=== PATIENT | male | born 1935 | race Caucasian/White ===

== ENCOUNTER 2023-08-20 18:12 | Inpatient (IN) | payer OTHER ==
[~2023-08-20] VITALS: Ht 180.3 cm; Wt 106.0 kg
[~2023-08-20 18:12] MED LIST: ACET500 PO; ALBU2.5V5 INH; BISA5EC PO; CALCIUM 500 MG1 EAC2 PO; CALCIUM CARBON500 M1 PO; CODEINE-GUAIFE120 M1 PO; DONE5 PO; DULO30 PO; ELIQUIS2.5 MG PO; HYDCOR10 TOP; Lopressor 25 mg25 MG PO; MIRALAX17 GM PO; NEURONTIN600 MG PO; OMEP20ER PO; Oxycodone HCl20 M1 PO; PRED20 PO; PRED5 PO; QUET25 PO; SENNA LAXATIVE8.6 MG PO; SIME80CH PO
[2023-08-20] MEDS ORDERED: FentaNYL Citrate 50 MCG/ML 2 ML Injection IV ONE (19:05)
[2023-08-20 19:10] LABS: BASOPHILS ABSOLUTE AUTO 0.03 K/mm3 (0.00-0.23); BASOPHILS PERCENT AUTO 0 % (0-2); EOSINOPHILS ABSOLUTE AUTO 0.11 K/mm3 (0.00-0.68); EOSINOPHILS PERCENT AUTO 1 % (0-6); Hematocrit 43.4 % (37.0-53.0); Hemoglobin 14.5 g/dL (13.5-17.5); IMMATURE GRAN ABSOLUTE AUTO 0.02 K/mm3 (0.00-0.10); IMMATURE GRAN PERCENT AUTO 0 % (0-1); LYMPHOCYTES ABSOLUTE AUTO 0.94 K/mm3 (0.84-5.20); LYMPHOCYTES PERCENT AUTO 10 % (21-46); MONOCYTES ABSOLUTE AUTO 0.52 K/mm3 (0.16-1.47); MONOCYTES PERCENT AUTO 6 % (4-13); Mean Corpuscular HGB 31.9 pg (26.0-34.0); Mean Corpuscular HGB Conc 33.4 g/dL (31.5-36.5); Mean Corpuscular Volume 96 fL (80-100); Mean Platelet Volume 10.5 fL (9.1-12.4); NEUTROPHILS ABSOLUTE AUTO 7.61 K/mm3 (1.96-9.15); NEUTROPHILS PERCENT AUTO 83 % (41-73); Platelet Count 144 K/mm3 (150-400); RDW Coefficient Variation 12.5 % (11.7-14.2); RDW Standard Deviation 43.8 fL (35.1-46.3); Red Blood Cell Count 4.54 M/mm3 (4.30-5.90); White Blood Cell Count 9.23 K/mm3 (4.00-11.30)
[2023-08-20 19:23] LABS: Albumin, Blood 3.6 g/dL (3.4-5.0); Albumin/Globulin Ratio 0.9 (0.8-1.8); Bilirubin, Total 0.6 mg/dL (0.1-1.0); Bun/Creatinine Ratio 20.8 (12.0-20.0); Calcium, Blood 9.3 mg/dL (8.5-10.1); Creatinine, Blood 0.96 mg/dL (0.60-1.20); Globulin, Blood 4.2 g/dL (2.2-4.0); Potassium, Blood 4.5 mmol/L (3.5-5.5); Total Protein, Blood 7.8 g/dL (6.4-8.2)
[2023-08-20 19:30] LABS: Source, Urine Clean Catch
[2023-08-20 19:34] LABS: Appearance, Urine Clear (Clear); Bilirubin, Urine Neg (Neg); Blood, Urine Neg (Neg); Color, Urine Yellow (P-Yellow); Glucose Qualitative, Urine Neg (Neg); Ketones, Urine Neg (Neg); Leukocyte Esterase, Urine Neg (Neg); Nitrite, Urine Neg (Neg); Protein, Urine 2+ (Neg); Urobilinogen, Urine NORM (Normal)
[2023-08-20 19:43] LABS: Bacteria Rare /hpf; Red Blood Cells, Urine Not Seen /hpf (0-2); Squamous Epithelial Cells Not Seen /hpf (Few); White Blood Cells, Urine 0-2 /hpf (0-5)
[2023-08-20] MEDS ORDERED: NS 1,000 ML IV SCH ×2 (20:10→23:00)
[2023-08-20] MEDS ORDERED: ATOR20 PO (20:58)
[2023-08-20] MEDS ORDERED: FLU VACC QS2023-24(6MOS UP)/PF 60 MCG/0.5 ML SYRINGE IM ONE (22:10)
[2023-08-20] MEDS ORDERED: Ondansetron HCl 2 MG / ML 2ML Vial IV PRN (22:40)
[2023-08-20] MEDS ORDERED: FentaNYL Citrate 50 MCG/ML 2 ML Injection IV PRN (22:40)
[2023-08-20 22:47] LABS: Magnesium, Blood 2.2 mg/dL (1.6-2.4); Phosphorus, Blood 3.9 mg/dL (2.5-4.9)
[2023-08-20] MEDS ORDERED: OLANZapine 10 MG Vial IM PRN ×2 (22:50→22:55)
[2023-08-20] MEDS ORDERED: Metoprolol Tartrate 1 MG/ML 5 ML VIAL IV PRN ×2 (22:50→22:55)
[2023-08-20] MEDS ORDERED: Enoxaparin 40 MG/0.4 ML SYR SC SCH (23:00)
[2023-08-20] MEDS ORDERED: OLANZapine 10 MG Vial IM SCH (23:00)
[2023-08-20 23:26] VITALS: BP 141/95
--- NOTE | 2023-08-20 23:34 | NUR ---
ADMIT NOTE HANDOFF RECEIVED FROM CLINICAL FELLOWSHERYL MONK. PT ARRIVED TO FLOOR VIA GURNEY. PERSONAL POSSESSIONS WITH PT. PT ORIENTED TO UNIT. CALL BUTTON WITHIN REACH. IV FLUIDS INFUSING ORDERED.
[2023-08-21] MEDS ORDERED: NS 1,000 ML IV SCH
--- NOTE | 2023-08-21 04:48 | NUR ---
SHIFT SUMMARY ADMITTED FROM THE ER THIS SHIFT FOR SBO. DNR CODE. NS INFUSING ORDERED. BM THIS SHIFT. PT IS NPO. HE IS A 1 ASSIST TO BSC. HE DOES HAVE DEMENTIA. HE LIVES AT [facility]. HE IS ALERT TO SELF. HE KNOWS HE IS IN A HOSPITAL, BUT NOT THE TOWN OR NAME OF THE HOSPITAL. SURGICAL CONSULT HAS BEEN CALLED TO ANSWERING SERVICE. HE STATES FREQUENTLY THAT HIS FEET HURT BUT HE REFUSES PAIN MEDICATION
[2023-08-21 06:09] LABS: BASOPHILS ABSOLUTE AUTO 0.03 K/mm3 (0.00-0.23); BASOPHILS PERCENT AUTO 0 % (0-2); EOSINOPHILS ABSOLUTE AUTO 0.12 K/mm3 (0.00-0.68); EOSINOPHILS PERCENT AUTO 2 % (0-6); Hemoglobin 12.3 g/dL (13.5-17.5); IMMATURE GRAN ABSOLUTE AUTO 0.03 K/mm3 (0.00-0.10); IMMATURE GRAN PERCENT AUTO 0 % (0-1); LYMPHOCYTES ABSOLUTE AUTO 1.27 K/mm3 (0.84-5.20); LYMPHOCYTES PERCENT AUTO 16 % (21-46); MONOCYTES PERCENT AUTO 8 % (4-13); Mean Corpuscular HGB 31.9 pg (26.0-34.0); Mean Corpuscular HGB Conc 32.4 g/dL (31.5-36.5); Mean Corpuscular Volume 99 fL (80-100); Mean Platelet Volume 10.6 fL (9.1-12.4); NEUTROPHILS ABSOLUTE AUTO 5.94 K/mm3 (1.96-9.15); NEUTROPHILS PERCENT AUTO 74 % (41-73); Platelet Count 124 K/mm3 (150-400); RDW Coefficient Variation 12.7 % (11.7-14.2); RDW Standard Deviation 45.5 fL (35.1-46.3); Red Blood Cell Count 3.85 M/mm3 (4.30-5.90); White Blood Cell Count 7.99 K/mm3 (4.00-11.30)
[2023-08-21 06:46] LABS: Bun/Creatinine Ratio 19.1 (12.0-20.0); Calcium, Blood 8.1 mg/dL (8.5-10.1); Creatinine, Blood 0.84 mg/dL (0.60-1.20); Potassium, Blood 4.4 mmol/L (3.5-5.5)
[2023-08-21 07:33] VITALS: BP 122/78
--- NOTE | 2023-08-21 14:28 | NUR ---
SHIFT SUMMARY PT AWAKE AT START OF SHIFT, UP TO BSC TO VOID. PT ADMITTED FOR SBO; NOC SHIFT REPORTED BM'S X2. PT UP TO BTHRM SEVERAL TIMES THIS SHIFT; 2 BMS TO PRESENT ON DAY SHIFT. DR RODRÍGUEZ IN TO SEE PT THIS AM. PT NPO FOR SURGICAL CONSULT. DR CARD PLACED ORDERS FOR NGT, BUT PT REFUSING. DR CARD NOTIFIED OF PT'S REFUSAL. DR CARD STATED THAT HE WOULD BE UNABLE TO ASSIST PT AT THIS TIME, SINCE HE IS REFUSING. DR RODRÍGUEZ UPDATED ON PT'S REFUSAL OF NGT AND DISCUSSION WITH DR CARD. PER DR RODRÍGUEZ, PT TO BE GIVEN SIPS OF WATER TODAY; SO FAR, PT TOLERATING WELL. PT REPORTED STOMACH PAIN IMPROVED AFTER BM'S. PT DOES CONTINUE TO C/O PAIN TO FEET; MEDICATED EARLIER PER EMAR WITH GOOD EFFECT FOR A WHILE. PT'S DAUGHTER AND POA, CALLED TO [facility] ON PT AND REPORTING HX OF SBO'S D/T ISSUES WITH LARGE INTESTINE BECOMING "" AND PARIAL REMOVAL. NURSE FROM .A. ALSO CALLED TO [facility] ON PT; UPDATE GIVEN. PT UP TO BTHRM USING FWW AND SBA. CALLS APPROPRIATELY WHEN FINISHED. BED ALARM ON FOR SAFETY. CALL LT IN REACH.
[2023-08-21 15:16] VITALS: BP 135/79
[2023-08-21 20:09] VITALS: BP 142/91
[2023-08-22] MEDS ORDERED: Ketorolac Tromethamine 15mg Vial IV PRN (01:00)
[2023-08-22] MEDS ORDERED: Phenyleph/Mineral Oil/Petrolat 1 APPLIC/57 GM Tube PR PRN (01:00)
--- NOTE | 2023-08-22 01:32 | NUR ---
PT REPORTS POOR PAIN CONTROL. DISCUSSED HOME MEDICATIONS WITH PT. PT STATES THAT HE CAN TAKE NSAIDS WITHOUT DIFFICULTY. CALLED HOSPITALIST AND OBTAINED ORDER FOR TORADOL. RECEIVED CALL FROM PHARMACY STATING PT HAS ALLERGY LISTED TO SALONPAS WHICH CONTAINS AN ANTI-INFLAMMATORY. DISCUSSED WITH PT, PT DOES NOT RECALL USING SALONPAS. SHOWED PT PICTURE OF MEDICATION, PT STATES HE TOOK A PILL ONE TIME THAT CAUSED A RASH, BUT DOES NOT RECALL AN ALLERGIC REACTION TO ANY OTHER MEDICATIONS. PT STATES HE DOES NOT KNOW WHAT THE PILL WAS THAT HE HAD AN ALLERGIC REACTION TO.
[2023-08-22 05:32] VITALS: BP 150/96
--- NOTE | 2023-08-22 05:52 | NUR ---
SHIFT SUMMARY: "EVA" IS A&OX2-3. VSS, NO ACUTE EVENTS OVERNIGHT. PT BECOMES SOB ON EXERTION, INCLUDING REPOSITIONING HIMSELF IN BED. O2 VIA NC PROVIDED, PT WORE FOR A SHORT TIME X2 THIS SHIFT. HE WAS UP TO THE BATHROOM FREQUENTLY, COMPLAINED OF BACK, ABDOMINAL, HEMORRHOIDAL, AND FOOT PAIN. PLEASE SEE NEW ORDERS. PT HAS HAD SEVERAL SMALL, LOOSE BM'S AND HAS PASSED COPIOUS AMOUNTS OF GAS. PT TAKES GABAPENTIN AND ORAL PAIN MEDICATION AT BASELINE, REPORTS SYMPTOMS OF FOOT NEUROPATHY SIGNIFICANTLY INCREASED. HE HAS TOLERATED SIPS OF WATER THIS SHIFT. IV TO LEFT AC PATENT. HE IS LYING IN BED WITH THE CALL LIGHT IN REACH. WILL GIVE REPORT TO DAY SHIFT RN.
[2023-08-22 06:13] LABS: BASOPHILS ABSOLUTE AUTO 0.02 K/mm3 (0.00-0.23); BASOPHILS PERCENT AUTO 0 % (0-2); EOSINOPHILS ABSOLUTE AUTO 0.14 K/mm3 (0.00-0.68); EOSINOPHILS PERCENT AUTO 2 % (0-6); Hemoglobin 12.1 g/dL (13.5-17.5); IMMATURE GRAN ABSOLUTE AUTO 0.02 K/mm3 (0.00-0.10); IMMATURE GRAN PERCENT AUTO 0 % (0-1); LYMPHOCYTES ABSOLUTE AUTO 1.11 K/mm3 (0.84-5.20); LYMPHOCYTES PERCENT AUTO 15 % (21-46); MONOCYTES ABSOLUTE AUTO 0.54 K/mm3 (0.16-1.47); MONOCYTES PERCENT AUTO 7 % (4-13); Mean Corpuscular HGB 31.8 pg (26.0-34.0); Mean Corpuscular HGB Conc 32.7 g/dL (31.5-36.5); Mean Corpuscular Volume 97 fL (80-100); Mean Platelet Volume 10.7 fL (9.1-12.4); NEUTROPHILS ABSOLUTE AUTO 5.53 K/mm3 (1.96-9.15); NEUTROPHILS PERCENT AUTO 75 % (41-73); Platelet Count 134 K/mm3 (150-400); RDW Coefficient Variation 12.8 % (11.7-14.2); RDW Standard Deviation 45.9 fL (35.1-46.3); White Blood Cell Count 7.36 K/mm3 (4.00-11.30)
[2023-08-22 06:22] LABS: Bun/Creatinine Ratio 14.6 (12.0-20.0); Calcium, Blood 8.5 mg/dL (8.5-10.1); Creatinine, Blood 0.96 mg/dL (0.60-1.20); Potassium, Blood 3.7 mmol/L (3.5-5.5)
[2023-08-22 07:54] VITALS: BP 148/89
[2023-08-22] MEDS ORDERED: Bisacodyl 5 MG TabEC PO PRN (10:15)
[2023-08-22] MEDS ORDERED: QUEtiapine Fumarate 25 MG Tab PO PRN (10:50)
--- NOTE | 2023-08-22 11:52 | NUR ---
AT 1030 PT BECAME INCREASINGLY AGGITATED STATING HE WOULD RATHER BE IN HIS ROOM IF "NOTHING IS BEING DONE." PT REPEATEDLY COMPLAINING OF BILATERAL FOOT PAIN. DR RODRÍGUEZ NOTIFIED THAT PT TAKES GABAPENTIN AT HOME AND ABOUT AGGITATION. NEW ORDERS PLACED. PT MEDICATED FOR AGGITATION PER EMAR AND IS RESTING IN BED AT THIS TIME. CONTINUES TO COMPLAIN OF PAIN BUT WILL GIVE SCHEDULED GABAPENTIN SOON EMAR PERMITS. PT TOLERATING CLEAR LIQUID DIET AND IS HAVING FREQUENT UNFORMED BROWN STOOL. BED IN LOW POSITION, CALL LIGHT WITHIN REACH.
[2023-08-22] MEDS ORDERED: Albuterol 2.5 MG/3 ML VIAL INH PRN (12:30)
[2023-08-22] MEDS ORDERED: Gabapentin 300 MG Cap PO SCH (14:00)
--- NOTE | 2023-08-22 17:04 | NUR ---
SHIFT SUMMARY PT AXO X1-2 EXTREMELY FORGETFUL. PT STARTED CLEAR LIQUIDS AND WAS TOLERATING WELL WITHOUT SIGNS OF ASPIRATION UNTIL AT 1205 THIS NURSE OBSERVED PT SOB AT REST. PT WAS 97 ON RA. SOME EXPIRATORY WHEEZE NOTED. DR RODRÍGUEZ NOTIFIED AT 1223, PT MADE NPO, CHEST X-RAY AND RT ORDERED. PT COMPLAINED OF PAIN, MEDICATED PER EMAR WITHOUT RELIEF UNTIL GABAPENTIN GIVEN. PT SLEEPING COMFORTABLY AT THIS TIME. BED IN LOW POSITION, CALL LIGHT WITHIN REACH. PT MEDICATED FOR AGGITATION AT 1106 WITH GOOD EFFECT. SEE PRIOR NOTE. PT HAVING LOOSE STOOL BM'S FREQUENTLY WHILE AWAKE.
[2023-08-22 20:12] VITALS: BP 150/85
--- NOTE | 2023-08-22 20:48 | NUR ---
DISCUSSED BOWEL OBSTRUCTION WITH PT. EDUCATED ON PURPOSE AND BENEFIT OF NG TUBE. PT REFUSES NG TUBE STATING THAT HE FEELS HE CANNOT BREATHE WHEN SOMETHING IS IN HIS NOSE.
[2023-08-22] MEDS ORDERED: Sennosides 8.6 MG Tab PO SCH (21:00)
[2023-08-22] MEDS ORDERED: Metoprolol Tartrate 25 MG Tab PO SCH (21:00)
[2023-08-22] MEDS ORDERED: QUEtiapine Fumarate 25 MG Tab PO SCH (21:00)
[2023-08-22] MEDS ORDERED: Atorvastatin 10 MG Tab PO SCH (21:00)
[2023-08-22] MEDS ORDERED: Calcium 500 MG/Vit D 200 Units Tab PO SCH (21:00)
[2023-08-22] MEDS ORDERED: Polyethylene Glycol 3350 17 gm PO SCH (21:00)
--- NOTE | 2023-08-22 21:50 | NUR ---
PT BECAME AGITATED AND STATED THAT HE WISHED TO GO HOME. STAFF ATTEMPTED TO REDIRECT PT. PT STATED THAT NOTHING IS BEING DONE FOR HIM AND THEREFORE WISHED TO GO HOME. EDUCATED PT ON SMALL BOWEL OBSTRUCTION AND DISCUSSED NG TUBE. PT AGAIN REFUSED NG TUBE PLACEMENT. PT CALLED HIS DAUGHTER, ALVIN, WHO IS HIS POA AND DISCUSSED HIS FEELINGS WITH HER. 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 SHE VOICED CONCERN THAT PT IS AT RISK FOR DEVELOPING THE SAME PROBLEM. SHE ALSO STATED THAT PT HAS A HISTORY OF DEMENTIA WITH BEHAVIORAL DISTURBANCE WHICH IS WELL CONTROLLED LONG PT TAKES HIS MEDICATIONS. CALLED THE ON-CALL HOSPITALIST WHO GAVE ORDER TO GIVE PT HIS GABAPENTIN AND SEROQUEL PO WITH A SIP OF WATER.
[2023-08-23] MEDS ORDERED: Ketorolac Tromethamine 15mg Vial IV PRN (02:10)
[2023-08-23 03:49] VITALS: BP 141/109
--- NOTE | 2023-08-23 03:57 | NUR ---
SHIFT SUMMARY: "EVA" IS A&OX2. VSS, NO ACUTE EVENTS OVERNIGHT. IV TO LEFT AC PATENT. PT HAS VOICED FRUSTRATION OVERNIGHT STATING THAT HE WISHES TO LEAVE THIS FACILITY AND GO HOME, THAT HE NEEDS TO GET BACK TO WORK FALLING TIMBER. PT REQUESTING PRUNE JUICE, EDUCATED ON PROTOCOL FOR TREATING SMALL BOWEL OBSTRUCTION. PT STATED "IF NOTHING IS GOING IN HOW CAN ANYTHING COME OUT?". PT CONTINUES TO REFUSE NG TUBE. PT DID HAVE ONE BOWEL MOVEMENT WITH VERY SMALL, SOFT BLOBS OF EXCREMENT AND HAS CONTINUED PASSING GAS. PT DID TOLERATE THE SEROQUEL AND GABAPENTIN WITH SMALL SIPS OF WATER WITHOUT DIFFICULTY. PT REQUESTING TO EAT AND DRINK. PULL-UP IN PLACE, PT IS CONTINENT OF BLADDER AND BOWEL. PT HAS NOT USED THE CALL LIGHT THIS SHIFT, BED ALARM IN PLACE. HE IS A STANDBY ASSIST WITH THE FWW. PT IS SITTING ON THE SIDE OF THE BED WITH THE CALL LIGHT IN REACH. WILL GIVE REPORT TO DAY SHIFT RN.
--- NOTE | 2023-08-23 05:35 | NUR ---
PT REFUSED LAB DRAW STATING THAT HE WISHES TO BE DISCHARGED. EDUCATED PT ON IMPORTANCE OF FOLLOW-UP BLOOD WORK, PT CONTINUES TO REFUSE LAB DRAW.
[2023-08-23] MEDS ORDERED: Omeprazole 20 MG CapCR PO SCH (06:00)
[2023-08-23] MEDS ORDERED: DULoxetine HCL 30 MG Cap DR PO SCH (09:00)
[2023-08-23 15:12] VITALS: BP 123/87
--- NOTE | 2023-08-23 19:40 | NUR ---
SHIFT SUMMARY PATIENT WITH PAIN TODAY, MEDICATED PER EMAR WITH RELIEF. HE CONTINUES TO BE AGITTATED THROUGHTOUT THE DAY OFF AND ON. TOLERATING FULL LIQUID DIET. 1 FORMED BM THIS AM AND 3 ADDITIONAL WITH SMALL PIECES OF BM THROUGHOUT SHIFT. 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 HE IS ORIENTED TO SELF AND KNOWS WHO HIS DAUGHTERS ARE. HE IS STEADY ON HIS FEET TODAY BUT FORGETFUL OF LIMITATIONS. BED IN LOW POSITION, CALL LIGHT IN REACH. PATIENT ABLE TO MAKE NEEDS KNOWN.
[2023-08-23 19:50] VITALS: BP 132/92
[2023-08-23] MEDS ORDERED: QUEtiapine Fumarate 50 MG TAB PO SCH (21:00)
[2023-08-23] MEDS ORDERED: Melatonin 3 MG Tab PO SCH (21:00)
--- NOTE | 2023-08-24 04:20 | NUR ---
SHIFT SUMMARY LOYD VALE WAS ALERT AND ORIENTED TO SELF ONLY AT START OF SHIFT. PT COMPLAINS OF FOOT PAIN, MEDICATED PER EMAR NO ACUTE EVENTS TONIGHT, NO NOTED CHANGES TO PT CONDITION. PT MAKING FREQUENT TRIPS TO THE BATHROOM HAVING SMALL SOFT BM'S. PT SATS REMAIN IN THE 90'S ON RA, HOWEVER THE PT DOES SEEM TO HAVE SOME SWATI WHILE SLEEPING. PT RESTING IN BED AT A LOW POSITION WITH CALL LIGHT IN REACH.
[2023-08-24 06:16] VITALS: BP 123/73
[2023-08-24 07:28] VITALS: BP 121/90
[2023-08-24 12:22] LABS: SARS-Cov-2 (COVID-19) PCR, MMC NEGATIVE (NEGATIVE)
[2023-08-24] MEDS ORDERED: MELA3 PO (13:00)
[2023-08-24] MEDS ORDERED: PREPARATION H PR (13:01)
--- NOTE | 2023-08-24 14:41 | NUR ---
DISCHARGE SUMMARY RN TO RN REPORT GIVENT TO JITENDRA AT [facility] AT 1200 PM 08/24/23. PATIENT TOLERATED SOLID FOODS TODAY WITH NO ADVERSE EFFECTS. SEVERAL BMS TODAY. NO ACUTE EVENTS DURING SHIFT. PATIENT UP WALKING WITH WALKER TO BATHROOM. PATIENT TRANSFERRED TO [facility] AT 1327 WITH [facility] AND USING TRANSPORT CHAIR.
== END 2023-08-24 13:29 | disposition home or self-care (01) | DRG 389 ==
LOC: ER 18:12 → MEDS 22:08 → SURS 22:08 → MEDS 23:10 → ENPENDDIS 08-24 10:27 → MEDS 08-24 13:29
PROVIDERS: Family Medicine; Student in an Organized Health Care Education/Training Program; ADMIT Internal Medicine
DX: K56.609 Unspecified intestinal obstruction, unspecified as to partial versus complete obstruction (principal); E87.21 Acute metabolic acidosis; I48.20 Chronic atrial fibrillation, unspecified; F03.918 Unspecified dementia, unspecified severity, with other behavioral disturbance; F03.911 Unspecified dementia, unspecified severity, with agitation; E86.0 Dehydration; K76.0 Fatty (change of) liver, not elsewhere classified; K21.9 Gastro-esophageal reflux disease without esophagitis; K44.9 Diaphragmatic hernia without obstruction or gangrene; M06.9 Rheumatoid arthritis, unspecified; Z66 Do not resuscitate; N28.1 Cyst of kidney, acquired; J45.909 Unspecified asthma, uncomplicated; M85.80 Other specified disorders of bone density and structure, unspecified site; I70.0 Atherosclerosis of aorta; I10 Essential (primary) hypertension; M19.90 Unspecified osteoarthritis, unspecified site; G89.4 Chronic pain syndrome; E78.5 Hyperlipidemia, unspecified; D64.9 Anemia, unspecified; D69.6 Thrombocytopenia, unspecified; Z53.29 Procedure and treatment not carried out because of patient's decision for other reasons; Z79.52 Long term (current) use of systemic steroids; Z86.718 Personal history of other venous thrombosis and embolism; Z88.1 Allergy status to other antibiotic agents; Z88.0 Allergy status to penicillin; Z88.8 Allergy status to other drugs, medicaments and biological substances; Z79.891 Long term (current) use of opiate analgesic; Z79.01 Long term (current) use of anticoagulants; Z98.1 Arthrodesis status; Z87.891 Personal history of nicotine dependence
CPT/HCPCS: 36415; 71045; 74018; 74177; 80048; 80053; 81001; 83605; 83690; 83735; 84100; 85025; 92610; 93005; 93010; 94640; 94664; 94760; 96361; 96374-59; 99285-25; A9270; J1650; J1885; J2405; J3010; J7030; Q9967; U0002

== ENCOUNTER 2023-10-28 13:30 | Emergency (ER) | payer OTHER ==
[~2023-10-28] VITALS: Ht 177.8 cm; Wt 99.8 kg
[~2023-10-28 13:30] MED LIST changes: +ATOR20 PO; +MELA3 PO; +PREPARATION H PR
[2023-10-28 14:46] LABS: BASOPHILS ABSOLUTE AUTO 0.01 K/mm3 (0.00-0.23); BASOPHILS PERCENT AUTO 0 % (0-2); EOSINOPHILS PERCENT AUTO 2 % (0-6); Hematocrit 40.9 % (37.0-53.0); Hemoglobin 13.5 g/dL (13.5-17.5); IMMATURE GRAN ABSOLUTE AUTO 0.02 K/mm3 (0.00-0.10); IMMATURE GRAN PERCENT AUTO 0 % (0-1); LYMPHOCYTES ABSOLUTE AUTO 0.89 K/mm3 (0.84-5.20); LYMPHOCYTES PERCENT AUTO 14 % (21-46); MONOCYTES PERCENT AUTO 6 % (4-13); Mean Corpuscular HGB 31.5 pg (26.0-34.0); Mean Corpuscular Volume 96 fL (80-100); NEUTROPHILS ABSOLUTE AUTO 5.02 K/mm3 (1.96-9.15); NEUTROPHILS PERCENT AUTO 78 % (41-73); Platelet Count 141 K/mm3 (150-400); RDW Coefficient Variation 12.3 % (11.7-14.2); RDW Standard Deviation 42.5 fL (35.1-46.3); Red Blood Cell Count 4.28 M/mm3 (4.30-5.90); White Blood Cell Count 6.44 K/mm3 (4.00-11.30)
[2023-10-28 15:05] LABS: Albumin, Blood 3.5 g/dL (3.4-5.0); Bilirubin, Total 0.4 mg/dL (0.1-1.0); Bun/Creatinine Ratio 19.5 (12.0-20.0); Calcium, Blood 8.9 mg/dL (8.5-10.1); Creatinine, Blood 0.97 mg/dL (0.60-1.20); Globulin, Blood 3.5 g/dL (2.2-4.0); Potassium, Blood 4.7 mmol/L (3.5-5.5)
[2023-10-28 15:30] LABS: Source, Urine Clean Catch
[2023-10-28 15:49] LABS: Appearance, Urine Clear (Clear); Bilirubin, Urine Neg (Neg); Blood, Urine Neg (Neg); Color, Urine Yellow (P-Yellow); Glucose Qualitative, Urine Neg (Neg); Ketones, Urine Neg (Neg); Leukocyte Esterase, Urine Neg (Neg); Nitrite, Urine Neg (Neg); Protein, Urine 1+ (Neg); Specific Gravity, Urine 1.015 (1.003-1.022); Urobilinogen, Urine NORM (Normal); pH, Urine 6.5 (5.0-8.0)
[2023-10-28 19:55] VITALS: BP 145/75
== END 2023-10-28 20:11 | disposition home or self-care (01) ==
LOC: ER 13:30
PROVIDERS: Student in an Organized Health Care Education/Training Program
DX: K59.00 Constipation, unspecified (principal); Z87.891 Personal history of nicotine dependence; I10 Essential (primary) hypertension; F03.90 Unspecified dementia, unspecified severity, without behavioral disturbance, psychotic disturbance, mood disturbance, and anxiety; M85.80 Other specified disorders of bone density and structure, unspecified site; M06.9 Rheumatoid arthritis, unspecified; Z86.711 Personal history of pulmonary embolism; Z79.52 Long term (current) use of systemic steroids; Z79.01 Long term (current) use of anticoagulants; Z79.899 Other long term (current) drug therapy; Z88.0 Allergy status to penicillin; Z88.1 Allergy status to other antibiotic agents; Z88.8 Allergy status to other drugs, medicaments and biological substances; Z91.048 Other nonmedicinal substance allergy status
CPT/HCPCS: 74177; 80053; 83690; 85025; Q9967